=== PATIENT | male | born 1965 | race Caucasian/White ===

== ENCOUNTER 2019-12-02 11:56 | Outpatient (CLI) | payer OTHER | END 2019-12-02 11:57 | disposition home or self-care (01) | LOC: ULT 11:56 | PROVIDERS: ATTEND Internal Medicine Cardiovascular Disease | DX: R55 Syncope and collapse (principal); I51.89 Other ill-defined heart diseases; I08.1 Rheumatic disorders of both mitral and tricuspid valves | CPT/HCPCS: 93306 ==

== ENCOUNTER 2019-12-08 06:38 | Outpatient (CLI) | payer OTHER ==
[2019-12-08 14:38] LABS: INR-International Normal Ratio 0.9; PTT 29.9 sec (22.9-36.1); Prothrombin Time 12.2 sec (12.0-14.7)
[2019-12-09 11:17] LABS: SARS-CoV-2 MS2 Positive; SARS-CoV-2 N Gene Negative; SARS-CoV-2 S Gene Negative; SARS-CoV-2 orf1ab Negative
== END 2019-12-08 06:39 | disposition home or self-care (01) ==
LOC: LABBT 06:38
PROVIDERS: ATTEND Internal Medicine Cardiovascular Disease
DX: Z01.818 Encounter for other preprocedural examination (principal); Z11.59 Encounter for screening for other viral diseases; R55 Syncope and collapse
CPT/HCPCS: 85610; 85730; 87635; 93005; 93010; U0003

== ENCOUNTER 2019-12-12 10:10 | Day surgery (SDC) | payer OTHER ==
[2019-12-08 13:13] VITALS: BMI 31.4
[2019-12-12] MEDS ORDERED: Famotidine/PF 20 mg/2ml Vial ONE (13:36)
[2019-12-12] MEDS ORDERED: Rocuronium Bromide 10 MG/ML (10ML VIAL) ONE (13:46)
[2019-12-12] MEDS ORDERED: Succinylcholine Chloride 20 MG/ML 10 ml SYRINGE FS ONE (13:46)
[2019-12-12] MEDS ORDERED: Lidocaine 1% PF 5 ML VIAL ONE (13:46)
[2019-12-12] MEDS ORDERED: PROPOFOL 200 MG/20 ML VIAL ONE (13:46)
[2019-12-12] MEDS ORDERED: Glycopyrrolate 0.2 MG/ML 5 ML SYRINGE ONE (13:46)
[2019-12-12] MEDS ORDERED: Fentanyl 100 MCG/2 ML VIAL ONE ×2 (14:02→14:48)
[2019-12-12] MEDS ORDERED: Gentamicin 80 MG/2 ML VIAL ONE (14:50)
[2019-12-12] MEDS ORDERED: Clindamycin/D5W 900 mg/50 ml Premix Bag ONE (14:50)
[2019-12-12] MEDS ORDERED: Heparin 0 ML ONE (14:50)
[2019-12-12] MEDS ORDERED: Clindamycin/D5W 600 mg/50 ml Premix Bag ONE (14:50)
[2019-12-12] MEDS ORDERED: Isoproterenol 0.2 MG/1 ML AMP ONE (16:01)
[2019-12-12] MEDS ORDERED: SUGAMMADEX SODIUM 200 MG/2 ML VIAL ONE (16:25)
--- NOTE | 2019-12-13 07:35 | OP ---
DATE OF PROCEDURE: 12/12/2019 PROCEDURE PERFORMED: Electrophysiology study. REASON FOR PROCEDURE: Mr. Avila is a 54-year-old man with history of syncopal spells and preserved left ventricular systolic function, narcolepsy, sleep apnea. He has a LINQ recorder, loop monitor, has repeatedly revealed episode of artifact correlating some of his symptoms, but also more recently an episode was also noted, which was difficult to rule out true ventricular tachycardia. He is here for an EP study, possible need of evaluation for device. DESCRIPTION OF PROCEDURE: The patient received general sedation by Anesthesia specialist. The right femoral venous area was prepped, draped, anesthetized using subcutaneous lidocaine and under ultrasound guidance, right femoral vein was cannulated and a 6-[place] short sheath was introduced, through which an octapolar catheter advanced to the right atrium and right ventricle, His bundle and CS positions. Pacing, mapping, and recording were performed at each location. The following findings were noted. Baseline rhythm was sinus rhythm with RR cycle length 944 milliseconds, NV interval of 180 milliseconds, QRS is 56 milliseconds , wide QT is 419 milliseconds, AH 138 milliseconds, HV 56 milliseconds. The corrected sinus node recovery time is 214 milliseconds. AV Wenckebach cycle length is 409 milliseconds. Retrograde ventricular Wenckebach cycle length was 520 milliseconds with concentric VA conduction was seen. The AV michael ERP was measured at 600/360 milliseconds with no dual AV michael physiology was present. The ventricular extrastimuli testing was performed with 600 and [address] trains with 1 up to 3 ventricular extrastimuli, which were gradually coming to the refractory period. The ventricular extrastimuli refractory period was 600/260 milliseconds initially again after three ventricular extrastimuli was placed and there was no ventricular tachyarrhythmia was induced. The ventricular extrastimuli protocol was repeated after Isuprel administration in multiple locations. CONCLUSION: 1. No inducible ventricular tachycardia. 2. Normal sinus and AV michael function. Normal His-Purkinje function seen. 3. No evidence of dual internal AV node physiology. 4. No evidence of accessory pathway is seen. 5. No inducible arrhythmia at this point. Will hold off device implantation and seek alternative causes of syncopal spells. Job ID: [id number] [facility]
== END 2019-12-12 19:40 | disposition home or self-care (01) ==
LOC: CCL 10:10
PROVIDERS: ATTEND Internal Medicine Cardiovascular Disease
PROC: 4A0234Z Measurement of Cardiac Electrical Activity, Percutaneous Approach (ICD-10-PCS; principal; 2019-12-12)
PROC: 4A023FZ Measurement of Cardiac Rhythm, Percutaneous Approach (ICD-10-PCS; principal; 2019-12-12)
DX: G47.419 Narcolepsy without cataplexy (principal); G47.30 Sleep apnea, unspecified; I10 Essential (primary) hypertension; I51.9 Heart disease, unspecified; E78.5 Hyperlipidemia, unspecified; Z79.899 Other long term (current) drug therapy; Z87.891 Personal history of nicotine dependence; Z88.0 Allergy status to penicillin; Z88.6 Allergy status to analgesic agent; Z91.030 Bee allergy status
CPT/HCPCS: 76942; 93621; C1730; J1580; J1644; J2001; J2704; J3010; J3490; S0028

== ENCOUNTER 2022-08-04 05:34 | Day surgery (SDC) | payer OTHER ==
[2022-08-01 11:50] VITALS: BMI 34.0
[2022-08-04] MEDS ORDERED: Lidocaine 1% w/Epinephrine 1:100K 20 ML VIAL ONE (06:55)
== END 2022-08-04 08:10 | disposition home or self-care (01) ==
LOC: SDC 05:34
PROVIDERS: ATTEND Internal Medicine Cardiovascular Disease
PROC: 0JPT32Z Removal of Monitoring Device from Trunk Subcutaneous Tissue and Fascia, Percutaneous Approach (ICD-10-PCS; principal; 2022-08-04)
PROC: 0JH632Z Insertion of Monitoring Device into Chest Subcutaneous Tissue and Fascia, Percutaneous Approach (ICD-10-PCS; principal; 2022-08-04)
DX: Z45.09 Encounter for adjustment and management of other cardiac device (principal); R55 Syncope and collapse; I11.9 Hypertensive heart disease without heart failure; G47.33 Obstructive sleep apnea (adult) (pediatric); E78.5 Hyperlipidemia, unspecified; Z87.891 Personal history of nicotine dependence; Z79.899 Other long term (current) drug therapy; Z88.0 Allergy status to penicillin; Z88.6 Allergy status to analgesic agent; Z91.030 Bee allergy status
CPT/HCPCS: 33285; 33286